=== PATIENT | male | born 1990 | race Caucasian/White ===

== ENCOUNTER → 2024-03-12 12:21 | Emergency (ER) | payer SELFPAY ==
[~2024-03-12 12:21] MED LIST: Boostrix 0.5 ML (Tdap) VIAL (>/=7 yrs of age) ONE; Bupivacaine PF 0.5% 30 ML VIAL ONE; Cephalexin 500 MG CAP ONE; Lidocaine 1% (PF) 30 ML VIAL ONE
== END | disposition home or self-care (01) ==
LOC: MADERS 12:21
DX: S68.621A Partial traumatic transphalangeal amputation of left index finger, initial encounter (principal); F17.290 Nicotine dependence, other tobacco product, uncomplicated; W23.0XXA Caught, crushed, jammed, or pinched between moving objects, initial encounter; Z23 Encounter for immunization
CPT/HCPCS: 90471; 90715; J0665